=== PATIENT | female | born 1980 | race Hispanic/Latino ===

== ENCOUNTER 2022-01-27 08:26 | Outpatient (CLI) | payer BC | END 2022-01-27 08:27 | disposition home or self-care (01) | LOC: BICULT 08:26 | PROVIDERS: ATTEND Family Medicine | DX: R94.5 Abnormal results of liver function studies (principal); K80.20 Calculus of gallbladder without cholecystitis without obstruction; K76.0 Fatty (change of) liver, not elsewhere classified | CPT/HCPCS: 76705 ==